=== PATIENT | female | born 1955 | race Two or more races ===

== ENCOUNTER 2023-10-13 02:13 | Emergency (ER) | payer OTHER, MEDICAID ==
[~2023-10-13] VITALS: Ht 154.9 cm; Wt 73.0 kg
[2023-10-13 02:16] VITALS: O2SAT 98
[2023-10-13] MEDS: ACETAMINOPHEN 325MG TABLET PO ONE (02:47)
[2023-10-13 02:48] VITALS: BP 178/81; PULSE 80; RESP 13; TEMP 98.3
[2023-10-13 03:54] LABS: TROPONIN I HIGH SENSITIVITY 9 ng/L (3.0-34)
[2023-10-13] MEDS ORDERED: ACET-2708 MT (04:21)
[2023-10-13] MEDS: LIDOCAINE 5% PATCH TOP SCH (04:28)
== END 2023-10-13 04:34 | disposition home or self-care (01) ==
LOC: ER 02:13
DX: R07.89 Other chest pain (principal); I10 Essential (primary) hypertension; Z00.00 Encounter for general adult medical examination without abnormal findings; W06.XXXA Fall from bed, initial encounter; Y93.89 Activity, other specified; Y92.89 Other specified places as the place of occurrence of the external cause; Y99.8 Other external cause status
CPT/HCPCS: 36415; 71101; 84484; 93005; 99285

== ENCOUNTER 2024-10-19 02:41 | Emergency (ER) | payer MEDICARE, MEDICAID ==
[~2024-10-19] VITALS: Ht 162.6 cm; Wt 65.0 kg
[~2024-10-19 02:41] MED LIST: ACET-2708 MT
[2024-10-19 02:49] VITALS: TEMP 36.6; O2SAT 99
[2024-10-19] MEDS: ACETAMINOPHEN 325MG TABLET PO ONE (03:13)
[2024-10-19 05:10] VITALS: BP 158/77; PULSE 84; RESP 16; O2SAT 99
== END 2024-10-19 05:10 | disposition home or self-care (01) ==
LOC: ER 02:41
DX: S00.83XA Contusion of other part of head, initial encounter (principal); I10 Essential (primary) hypertension; Z00.00 Encounter for general adult medical examination without abnormal findings; Z79.899 Other long term (current) drug therapy; W06.XXXA Fall from bed, initial encounter; Y93.89 Activity, other specified; Y92.89 Other specified places as the place of occurrence of the external cause; Y99.8 Other external cause status
CPT/HCPCS: 99284